=== PATIENT | male | born 1980 | race Two or more races ===

== ENCOUNTER 2020-04-26 18:06 | Emergency (ER) | payer MEDICAID, OTHER ==
[~2020-04-26] VITALS: Ht 175.3 cm; Wt 113.9 kg
[2020-04-26 18:20] VITALS: BP 137/88
== END 2020-04-26 19:31 | disposition home or self-care (01) ==
LOC: ER 18:06
DX: S42.402A Unspecified fracture of lower end of left humerus, initial encounter for closed fracture (principal); W19.XXXA Unspecified fall, initial encounter; Y93.89 Activity, other specified; Y92.89 Other specified places as the place of occurrence of the external cause; Y99.8 Other external cause status
CPT/HCPCS: 29105; 73080; 73130